=== PATIENT | female | born 1950 | race Caucasian/White ===

== ENCOUNTER 2017-11-09 18:06 | Inpatient (IN) | payer BC, MEDICARE ==
[~2017-11-09] VITALS: Ht 162.6 cm; Wt 76.9 kg
[2017-11-09] MEDS ORDERED: FLUT1AER INH (19:11)
[2017-11-09] MEDS ORDERED: NYST1000 PO (19:11)
[2017-11-09] MEDS ORDERED: LANS30CA37 PO (19:11)
[2017-11-09] MEDS ORDERED: NITR100C PO (19:11)
[2017-11-09] MEDS ORDERED: ALBUTEROL HFA INH (19:11)
[2017-11-09] MEDS ORDERED: ONDA8TAB9 PO (19:12)
[2017-11-09 19:28] LABS: D-DIMER 0.57 MG/L FEU (0-0.50); INR 1.2 INR; PARTIAL THROMBOPLASTIN TIME 29 SECONDS (22-32); PROTHROMBIN TIME 12.3 SECONDS (9.0-12.0)
[2017-11-09 19:38] LABS: ALKALINE PHOSPHATASE 480 IU/L (46-116); ANION GAP 12 (8-16); BILIRUBIN,TOTAL 11.2 MG/DL (0.1-1.0); BLOOD UREA NITROGEN 18 MG/DL (7-18); BUN/CREATININE RATIO 16.1 (6.6-38.0); CALCIUM 9.1 MG/DL (8.5-10.1); CHLORIDE 99 MMOL/L (99-107); CREATININE 1.12 MG/DL (0.40-0.90); GLUCOSE 99 MG/DL (70-104); LIPASE 125 U/L (73-393); SODIUM 135 MMOL/L (135-145); TOTAL CARBON DIOXIDE 24.5 MMOL/L (24-32); eGFR 49 ML/MIN
[2017-11-09 19:40] LABS: HEMATOCRIT 45.4 % (35.0-45.0); HEMOGLOBIN 15.6 g/dl (12.0-16.0); MEAN CORPUSCULAR HEMOGLOBIN 28.4 PG (27.0-31.0); MEAN CORPUSCULAR HGB CONC 34.3 % (33.0-36.5); MEAN CORPUSCULAR VOLUME 82.7 FL (78-98); MEAN PLATELET VOLUME 9.7 FL (7.4-10.4); PLATELET COUNT 260 X10'3 (140-440); RED BLOOD COUNT 5.48 X10'6 (4.20-5.60); RED CELL DISTRIBUTION WIDTH 16.6 % (11.5-14.5); WHITE BLOOD COUNT 9.2 X10'3 (4.5-11.0)
[2017-11-09 19:43] LABS: CLARITY,URINE CLEAR (Clear); GLUCOSE, URINE NEGATIVE (Neg); KETONES,URINE NEGATIVE (Neg); LEUKOCYTE ESTERASE ,URINE NEGATIVE (Neg); NITRITES, URINE NEGATIVE (Neg); OCCULT BLOOD,URINE NEGATIVE (Neg); PH,URINE 5.5 (4.8-8.0); PROTEIN,URINE TRACE mg/dl (Neg)
[2017-11-09 19:58] LABS: TOTAL CELLS COUNTED 100
[2017-11-09 19:59] LABS: ANISOCYTOSIS 1+; PLATELET ESTIMATE NORMAL
[2017-11-09 20:02] LABS: UA COLLECTION TYPE NON-SPECIFIED
[2017-11-09 20:03] LABS: COLOR,URINE DARK YELLOW (Yellow)
[2017-11-09 20:06] LABS: BACTERIA,URINE FEW /HPF (Neg); MUCUS STRANDS NONE SEEN /LPF (Neg); RBC,URINE NONE SEEN /HPF (0-2); SQUAMOUS EPITHELIAL CELL,UR FEW /LPF (FEW); WBC,URINE NONE SEEN /HPF (0-4)
[2017-11-09 20:28] LABS: ALBUMIN/GLOBULIN RATIO 0.8 (1.1-1.5); POTASSIUM 3.7 MMOL/L (3.5-5.1)
[2017-11-09 20:30] LABS: ALANINE AMINOTRANSFERASE 1724 U/L (12-78); ASPARTATE AMINO TRANSFERASE 1329 U/L (10-37)
[2017-11-09] MEDS ORDERED: temazepam 15mg capsule PO PRN (21:00)
[2017-11-09] MEDS ORDERED: mag hydrox/Alum hydrox/simeth 30ml oral suspension PO PRN (21:15)
[2017-11-09] MEDS ORDERED: magnesium hydroxide 30ml (MOM) UD suspension PO PRN (21:15)
[2017-11-09] MEDS ORDERED: morphine 4 MG/ML inj SYRINge IV PRN ×2 (21:15)
[2017-11-09] MEDS ORDERED: ALBU18HF2 INH (21:28)
[2017-11-09] MEDS ORDERED: albuterol 2.5 MG/3 ML nebule NEB PRN (22:00)
[2017-11-09] MEDS ORDERED: iohexol 300mg/ml 100ml inj. ONE (22:02)
[2017-11-09] MEDS: normal saline 1000ml 1,000 ML IV SCH (22:28)
[2017-11-09 22:30] VITALS: BP 151/55
[2017-11-09] MEDS ORDERED: benzonatate 100mg capsule PO PRN (23:00)
[2017-11-10] VITALS (10 sets, daily range): BP systolic 127–154; BP diastolic 56–78
[2017-11-10 05:08] LABS: HEMATOCRIT 39.7 % (35.0-45.0); HEMOGLOBIN 13.8 g/dl (12.0-16.0); MEAN CORPUSCULAR HEMOGLOBIN 28.6 PG (27.0-31.0); MEAN CORPUSCULAR HGB CONC 34.9 % (33.0-36.5); MEAN CORPUSCULAR VOLUME 82.2 FL (78-98); PLATELET COUNT 235 X10'3 (140-440); RED BLOOD COUNT 4.83 X10'6 (4.20-5.60); RED CELL DISTRIBUTION WIDTH 16.5 % (11.5-14.5); WHITE BLOOD COUNT 8.4 X10'3 (4.5-11.0)
[2017-11-10 05:10] LABS: INR 1.2 INR; PROTHROMBIN TIME 12.3 SECONDS (9.0-12.0)
[2017-11-10 05:23] LABS: ALANINE AMINOTRANSFERASE 1380 U/L (12-78); ALBUMIN 2.4 G/DL (3.4-5.0); ALBUMIN/GLOBULIN RATIO 0.7 (1.1-1.5); ALKALINE PHOSPHATASE 407 IU/L (46-116); ANION GAP 8 (8-16); ASPARTATE AMINO TRANSFERASE 1156 U/L (10-37); BILIRUBIN,TOTAL 9.5 MG/DL (0.1-1.0); BLOOD UREA NITROGEN 13 MG/DL (7-18); BUN/CREATININE RATIO 12.3 (6.6-38.0); CALCIUM 8.4 MG/DL (8.5-10.1); CHLORIDE 104 MMOL/L (99-107); CREATININE 1.06 MG/DL (0.40-0.90); GLUCOSE 77 MG/DL (70-104); POTASSIUM 3.5 MMOL/L (3.5-5.1); SODIUM 137 MMOL/L (135-145); TOTAL CARBON DIOXIDE 25.2 MMOL/L (24-32); TOTAL PROTEIN 5.8 G/DL (6.4-8.2); eGFR 52 ML/MIN
[2017-11-10] MEDS ORDERED: albuterol 2.5 MG/3 ML nebule NEB SCH (07:00)
[2017-11-10] MEDS: normal saline 1000ml 1,000 ML IV SCH (07:52)
[2017-11-10] MEDS ORDERED: pantoprazole 40mg Tablet.DR PO SCH (08:00)
[2017-11-10] MEDS ORDERED: nitrofurantoin macrocrystal 100mg capsule PO SCH (08:00)
[2017-11-10] MEDS ORDERED: BUDESONIDE 0.25 MG/2 ML AMPUL.NEB IH SCH (08:00)
[2017-11-10] MEDS ORDERED: fentaNYL/PF 50MCG/1 ML 2ML syringe ONE (08:12)
[2017-11-10] MEDS ORDERED: MIDAZolam 5mg/5ml vial ONE (08:12)
[2017-11-10] MEDS ORDERED: meperidine/PF 100mg/ml syringe ONE (08:12)
[2017-11-10] MEDS ORDERED: glucagon, human recombinant 1mg kit ONE (08:13)
[2017-11-10] MEDS ORDERED: diphenhydrAMINE 50 mg/ml inj ONE (08:13)
[2017-11-10] MEDS ORDERED: levoFLOXACIN-Levaquin 500mg/D5 100 ML IV ONE (08:13)
[2017-11-10] MEDS ORDERED: LIDOcaine Viscous 15ml cup ONE (08:13)
[2017-11-10] MEDS ORDERED: iohexol 300 MG/1 ML 50ml polymer ONE (08:13)
[2017-11-10 08:35] LABS: ANISOCYTOSIS 1+; PLATELET ESTIMATE NORMAL; TOTAL CELLS COUNTED 100
[2017-11-10] MEDS ORDERED: normal saline 1000ml 1,000 ML IV SCH (09:01)
[2017-11-10] MEDS ORDERED: MIDAZolam 5mg/5ml vial IV PRN (09:05)
[2017-11-10] MEDS ORDERED: LIDOcaine Viscous 15ml cup PO ONE (09:05)
[2017-11-10] MEDS ORDERED: fentaNYL/PF 50MCG/1 ML 2ML syringe IV PRN (09:05)
[2017-11-10] MEDS ORDERED: glucagon, human recombinant 1mg kit IV PRN (09:05)
[2017-11-10] MEDS ORDERED: iohexol 300 MG/1 ML 50ml polymer IV ONE (09:05)
[2017-11-10] MEDS ORDERED: simethicone 40mg/0.6ml oral drops 30ml MC ONE (09:05)
[2017-11-10] MEDS: ringers solution, lacted 1,000 ML IV SCH ×2 (11:45→19:33)
[2017-11-10] MEDS ORDERED: levoFLOXACIN-Levaquin 500mg/D5 100 ML IV SCH (13:50)
[2017-11-10] MEDS: ondansetron/PF 4mg/2ml inj IV PRN ×2 (14:55→21:36)
[2017-11-10] MEDS: furosemide 20 MG/2 ML vial IV SCH ×2 (14:59→19:37)
[2017-11-10 15:55] LABS: URINE AMPHETAMINE SCREEN NEGATIVE (Neg); URINE BARBITUATE SCREEN NEGATIVE (Neg); URINE BENZODIAZEPINES SCREEN POSITIVE (Neg); URINE CANNABINOID SCREEN NEGATIVE (Neg); URINE COCAINE SCREEN NEGATIVE (Neg); URINE METHADONE SCREEN NEGATIVE (Neg); URINE OPIATE SCREEN NEGATIVE (Neg); URINE PHENCYCLIDINE SCREEN NEGATIVE (Neg)
[2017-11-10] MEDS ORDERED: potassium Cl 20mEq in NS 1,000 ML IV SCH (16:00)
[2017-11-10] MEDS: proCHLORperazine 10 MG/2 ml inj IV PRN ×2 (16:15→23:42)
[2017-11-10] MEDS ORDERED: potassium Cl 20 mEq SR tablet PO SCH (17:30)
[2017-11-10] MEDS: metroNIDAZOLE-Flagyl 500mg/NS 100 ML IV SCH ×2 (17:48→23:23)
[2017-11-10] MEDS ORDERED: morphine 10mg/ml inj. IV PRN (19:25)
[2017-11-10] MEDS ORDERED: HYDROmorphone 1 mg/ml syringe IV ONE ×2 (19:25→23:35)
[2017-11-10] MEDS ORDERED: Potassium Cl inj 20 MEQ in normal saline 1000ml 1,000 ML IV SCH (21:14)
[2017-11-12 05:34] LABS: HBSAG SCREEN Negative (Negative); HEP A AB, IGM Negative (Negative); HEP B CORE AB, IGM Negative (Negative); HEPATITIS C ANTIBODY <0.1 s/co ratio (0.0-0.9)
== END 2017-11-11 00:25 | disposition short-term general hospital (02) | DRG 446 ==
LOC: ER 18:08 → ED HOLD 21:14 → EDBEDREQ 21:37 → SUR 3N 22:20
PROVIDERS: ADMIT Hospitalist; ATTEND Internal Medicine
PROC: BW251ZZ Computerized Tomography (CT Scan) of Chest, Abdomen and Pelvis using Low Osmolar Contrast (ICD-10-PCS; 2017-11-09)
PROC: 0FJD8ZZ Inspection of Pancreatic Duct, Via Natural or Artificial Opening Endoscopic (ICD-10-PCS; principal; 2017-11-10)
PROC: BF101ZZ Fluoroscopy of Bile Ducts using Low Osmolar Contrast (ICD-10-PCS; 2017-11-10)
DX: K80.42 Calculus of bile duct with acute cholecystitis without obstruction (principal); E87.70 Fluid overload, unspecified; K76.0 Fatty (change of) liver, not elsewhere classified; K76.9 Liver disease, unspecified; R74.0 Nonspecific elevation of levels of transaminase and lactic acid dehydrogenase [LDH]; R94.5 Abnormal results of liver function studies; Z79.899 Other long term (current) drug therapy; Z88.6 Allergy status to analgesic agent; Z88.5 Allergy status to narcotic agent
CPT/HCPCS: 36415; 71260; 74177; 76700; 80053; 80074; 80305; 80320; 80329; 81001; 83690; 83880; 84484; 85025; 85379; 85610; 85651; 85730; 86038; 86140; 87070; 93005; 93306; 93975; 99285; G0500; J0780; J1170; J1200; J1610; J1940; J1956; J2175; J2250; J2270; J2405; J3010; J3480; J3490; J7030; J7120; Q9967